=== PATIENT | male | born 1975 | race Caucasian/White ===

== ENCOUNTER 2021-05-29 00:50 | Emergency (ER) | payer SELFPAY ==
[~2021-05-29] VITALS: Ht 180.3 cm; Wt 77.1 kg
--- NOTE | 2021-05-29 00:57 | NUR ---
PT AMBULATED TO BED 6.
[2021-05-29 01:02] VITALS: BP 143/76
--- NOTE | 2021-05-29 01:05 | NUR ---
RECEIVED IN BED6 WITH C/O RASH SINCE LAST NIGHT THAT HE STATES HAS BEEN TRAVELING AND WORSENING. URTICARIA IS ALL OVER. "I THINK IT MIGHT HAVE SOMETHING TO DO WITH MY LIVER" PMH: DENIES ALLERGY: MOTRIN ("MY LIVER STARTS TO HURT")
[2021-05-29] MEDS ORDERED: diphenhydrAMINE 50 MG/ML VIAL IVP ONE (01:40)
[2021-05-29] MEDS ORDERED: predniSONE 20 MG TAB PO ONE (01:40)
[2021-05-29 02:01] LABS: BASOPHILS # (AUTO) 0.1 K/uL (0.00-0.22); EOSINOPHILS # (AUTO) 0.1 K/uL (0-0.4); EOSINOPHILS % (AUTO) 2.2 % (0.0-4.0); HEMATOCRIT 40.3 % (36-52); HEMOGLOBIN 13.7 g/dL (12.0-18.0); LYMPHOCYTES # (AUTO) 1.4 K/uL (2.0-11.5); MEAN CORPUSCULAR HEMOGLOBIN 30 pg (27-31); MEAN CORPUSCULAR HGB CONC 34 g/dL (33-37); MEAN CORPUSCULAR VOLUME 89.6 fL (80-94); MONOCYTES # (AUTO) 0.7 K/uL (0.8-1.0); MONOCYTES % (AUTO) 10.5 % (1.7-9.3); NEUTROPHILS # (AUTO) 4.2 K/uL (1.8-7.7); NEUTROPHILS % (AUTO) 64.3 % (42.2-75.2); PLATELET COUNT (AUTO) 254 K/uL (140-450); RED CELL DISTRIBUTION WIDTH 13.2 % (11.6-13.7); WHITE BLOOD COUNT (AUTO) 6.5 K/uL (4.8-10.8)
[2021-05-29 02:14] LABS: ALBUMIN 3.3 g/dL (3.4-5.0); CARBON DIOXIDE 34.7 mmol/L (21-32); CREATININE 1.1 mg/dL (0.6-1.3); POTASSIUM 3.7 mmol/L (3.5-5.1); TOTAL BILIRUBIN 2.4 mg/dL (0.0-1.0)
--- NOTE | 2021-05-29 03:45 | NUR ---
DR KEYES AT BEDSIDE FOR RE-EXAM
[2021-05-29 03:54] VITALS: BP 138/74
--- NOTE | 2021-05-29 03:54 | NUR ---
PT DISCHARGED AMA. PT STATES HE JUST STARTED A NEW JOB
--- NOTE | 2021-05-29 03:54 | NUR ---
Patient does not wish to proceed with medical care recommended by DR KEYES. Patient given information related to possible complications, up to and including , which could occur as a result of leaving hospital at this time. Patient verbalizes understanding of risks involved leaving against medical advice. Patient has signed AMA form.
== END 2021-05-29 03:54 | disposition left against medical advice (07) ==
LOC: MED 00:50
DX: E80.6 Other disorders of bilirubin metabolism (principal); K80.50 Calculus of bile duct without cholangitis or cholecystitis without obstruction; R21 Rash and other nonspecific skin eruption; Z88.6 Allergy status to analgesic agent
CPT/HCPCS: 36415; 76705; 80053; 82248; 83690; 85025; 96374; 99284; J1200; J7512; Q0092